=== PATIENT | female | born 1985 | race Caucasian/White ===

== ENCOUNTER 2022-02-15 13:09 | Emergency (ER) | payer SELFPAY ==
[~2022-02-15] VITALS: Ht 165.1 cm; Wt 82.0 kg
[2022-02-15 13:18] VITALS: BP 120/78
[2022-02-15] MEDS ORDERED: ALBUTEROL 6.7GM HFA INHALER ORI ONE (17:45)
[2022-02-15] MEDS ORDERED: TOPUD PO (18:39)
[2022-02-15] MEDS ORDERED: IBUP-2028 MT (18:39)
[2022-02-15] MEDS ORDERED: ALBU6.7H9 INH (18:39)
== END 2022-02-15 19:12 | disposition home or self-care (01) ==
LOC: ER 13:09
DX: J45.901 Unspecified asthma with (acute) exacerbation (principal); Z88.6 Allergy status to analgesic agent
CPT/HCPCS: 71045; 81025; 93005; 99283; Z7610